=== PATIENT | male | born 1935 | race Caucasian/White ===

== ENCOUNTER 2019-03-09 13:44 | Observation (INO) | payer OTHER ==
[~2019-03-09] VITALS: Ht 170.2 cm; Wt 74.4 kg
--- NOTE | 2019-03-09 13:44 | NUR ---
JADEN NINO ALS TO ER BED 08
[2019-03-09 13:54] VITALS: BP 104/78
--- NOTE | 2019-03-09 13:55 | NUR ---
DR ARREDONDO EXAMINING PT.
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
[2019-03-09 15:04] LABS: BASOPHILS % (AUTO) 0.6 % (0.0-2.0); EOSINOPHILS % (AUTO) 0.7 % (0.0-4.0); HEMATOCRIT 48.2 % (36-52); LYMPHOCYTES # (AUTO) 1.9 K/uL (2.0-11.5); LYMPHOCYTES % (AUTO) 34.1 % (20.5-51.1); MEAN CORPUSCULAR HEMOGLOBIN 32 pg (27-31); MEAN CORPUSCULAR HGB CONC 33 g/dL (33-37); MEAN CORPUSCULAR VOLUME 94.7 fL (80-94); MONOCYTES # (AUTO) 0.4 K/uL (0.8-1.0); MONOCYTES % (AUTO) 7.4 % (1.7-9.3); NEUTROPHILS # (AUTO) 3.2 K/uL (1.8-7.7); NEUTROPHILS % (AUTO) 57.2 % (42.2-75.2); PLATELET COUNT (AUTO) 194 K/uL (140-450); RED BLOOD CELL COUNT(AUTO) 5.08 MIL/uL (4.20-6.10); RED CELL DISTRIBUTION WIDTH 14.8 % (11.6-13.7); WHITE BLOOD COUNT (AUTO) 5.7 K/uL (4.8-10.8)
--- NOTE | 2019-03-09 15:06 | NUR ---
ISAR SCORE AND HOMELESS ASSESSMENT UNOBTAINABLE
[2019-03-09 15:14] LABS: PROTHROMBIN TIME 9.5 secs (10.8-13.4)
--- NOTE | 2019-03-09 15:20 | NUR ---
PT AMBULATED TO RESTROOM WITH ASSISTANCE
[2019-03-09 15:35] LABS: APPEARANCE,URINE CLEAR (CLEAR); BILIRUBIN,URINE NEGATIVE (NEGATIVE); BLOOD, URINE NEGATIVE (NEGATIVE); COLOR,URINE YELLOW (YELLOW); LEUKOCYTE ESTERASE ,URINE NEGATIVE (NEGATIVE); NITRITE, URINE NEGATIVE (NEGATIVE); PH,URINE 5.5 (5.0-9.0); UGLUCOSE NEGATIVE (NEGATIVE)
[2019-03-09 15:39] LABS: BARBITURATE, URINE NEGATIVE ng/ml (NEG <=200); BENZODIAZEPINE, URINE NEGATIVE ng/mL (NEG <=200); CANNABINOID, URINE NEGATIVE ng/mL (NEG <=50); COCAINE, URINE NEGATIVE ng/mL (NEG <=300); OPIATE, URINE NEGATIVE ng/mL (NEG <=2000); PHENCYCLIDINE SCREEN,URINE NEGATIVE ng/mL (NEG <=25)
[2019-03-09 16:12] LABS: HYALINE CASTS, URINE 0-10 /LPF (None Seen); RBC,URINE 0 /HPF (0-5); WBC,URINE 0 /HPF (0-5)
[2019-03-09 16:35] LABS: ANION GAP 17.6 (8-16); CARBON DIOXIDE 23.1 mmol/L (21-32); CHLORIDE 104 mmol/L (98-107); GLUCOSE 99 mg/dL (74-106); POTASSIUM 4.7 mmol/L (3.5-5.1); SODIUM SERUM 140 mmol/L (136-145)
[2019-03-09 16:36] LABS: ALBUMIN 3.7 g/dL (3.4-5.0); ASPARTATE AMINOTRANSFERASE 18 U/L (15-37); TOTAL BILIRUBIN 0.5 mg/dL (0.0-1.0); UREA NITROGEN, BLOOD 29 mg/dL (7-18)
[2019-03-09 16:37] LABS: ACETAMINOPHEN < 0.5 ug/ml (10-30); SALICYLATE 4.8 mg/dL (2.8-20.0)
--- NOTE | 2019-03-09 17:02 | NUR ---
PT IS BECOMING IRRITABLE AND IS STATING HE WANTS TO LEAVE THE HOSPITAL. PT IS INSISTING WE LET HIM GO OUTSIDE TO SMOKE. I INFORMED PT HE CAN'T GO OUTSIDE TO SMOKE. DR. ARREDONDO MADE AWARE
[2019-03-09] MEDS ORDERED: LORazepam 2 MG/ML VIAL IM ONE (17:50)
[2019-03-09] MEDS ORDERED: OLANZapine 5 MG ODT PO ONE (17:50)
--- NOTE | 2019-03-09 18:40 | NUR ---
RECEIVED REPORT FROM EMERGENCY ROOM NURSE DARIAN FOR CONTINUITY OF CARE. PT IN STABLE CONDITION. RESPIRATIONS EVEN AND UNLABORED. SAFETY MEASURES IN PLACE. BED IN LOW POSITION. BED ALARM ON. CALL LIGHT AT BEDSIDE. WILL CONTINUE TO MONITOR.
--- NOTE | 2019-03-09 18:42 | NUR ---
Patient will be admitted to care of DR. DR. CANELA. Admited to TELEMETRY. Will go to room 106A. Belongings list completed. Report to KRYS RILEY.
[2019-03-09] MEDS: NACL 0.9% 1,000 ML IV SCH (18:44)
[2019-03-09] MEDS ORDERED: DOCUSATE SODIUM 100 MG GELCAP PO PRN (18:45)
[2019-03-09] MEDS ORDERED: HYDROcodone/APAP 5/325 MG 1 TAB TAB PO PRN (18:45)
[2019-03-09] MEDS ORDERED: ONDANSETRON 4 MG/2 ML VIAL IM/IVP PRN (18:45)
[2019-03-09] MEDS ORDERED: MORPHINE SULFATE 2 MG/ML SYR IVP PRN (18:45)
[2019-03-09] MEDS ORDERED: ACETAMINOPHEN 325 MG TAB PO PRN (18:45)
[2019-03-09] MEDS ORDERED: ZOLPIDEM 5 MG TAB PO PRN (18:45)
--- NOTE | 2019-03-09 18:45 | NUR ---
MRSA NARES TAKEN TO LAB AT THIS TIME.
--- NOTE | 2019-03-09 19:15 | NUR ---
GAVE REPORT TO TRAFFIC I MANAGER NURSE OSWALDO FOR CONTINUITY OF CARE. PT IN STABLE CONDITION.
--- NOTE | 2019-03-09 19:15 | NUR ---
REPORT RECEIVED BY ROSEMARY RN DAYSHIFT NURSE, MRSA SWAB DONE, V/S FOLLOWS T 97.6 P 80 R 18 B/P 166/89 02 95% ON ROOM AIR. PT IN LOW BED WITH SIDE RAILS UP X2 AND BED ALARM ON.
[2019-03-09 19:30] VITALS: BP 113/68
--- NOTE | 2019-03-09 19:45 | NUR ---
PT IN LOW BED WITH BED ALARM ON, HE IS AOX1 WITH 18G IV SITE ON LEFT F/A WHICH IS INTACT AND FLUSHED PATENT. PT WAS TURNED, CHANGED AND YELLOW FALLS GOWN PLACED ON PT FOR FALLS PROTOCOL. PT SKIN INTACT. BELONGINGS OF CLOTHES AND GLASSES AT BEDSIDE. PT APPEARS TO BE WEARING DENTURES WELL.
[2019-03-09 20:10] LABS: PHOSPHORUS 4.1 mg/dL (2.5-4.9); THYROID STIMULATING HORMONE 1.87 uIU/mL (0.34-3.74)
[2019-03-09] MEDS: LORazepam 2 MG/ML VIAL IM/IVP PRN (20:39)
--- NOTE | 2019-03-09 20:42 | NUR ---
PT TAKEN BY PHONG FOR CT AND PULMONARY VQ SCAN. PT WAS GIVEN 1MG IVP ATIVAN FOR AGITATION AND THE ORDERED 5,000 UNITS OF HEPARIN SQ BEFORE LEAVING THE FLOOR.
[2019-03-10] VITALS: BP 153/88
--- NOTE | 2019-03-10 | NUR ---
PT IN BED SLEEPING, HE WAS TURNED, CHANGED AND REPOSITIONED IN BED, NO S/S OF PAIN OR DISTRESS NOTED V/S FOLLOWS T 97.5 P 64 R 18 B/P 153/88 02 97% ON ROOM AIR. IV SITE INTACT AND RUNNING N/S AT 80MLS/HR. ALL FALLS PRECAUTIONS IN PLACE AND CALL RENE IN REACH.
[2019-03-10] MEDS ORDERED: traZODone 50 MG TAB PO PRN (02:00)
[2019-03-10] MEDS ORDERED: OLANZapine 5 MG ODT SL PRN (02:00)
[2019-03-10] MEDS ORDERED: MELATONIN 3 MG TAB PO PRN (02:00)
[2019-03-10 04:00] VITALS: BP 168/99
--- NOTE | 2019-03-10 04:45 | NUR ---
PT IN BED NO S/S OF PAIN OR DISTRESS NOTED. PT WAS TURNED, CHANGED AND REPOSITIONED IN BED. V/S FOLLOWS T 97.7 P 77 R 18 B/P 168/99 02 95% ON ROOM AIR. RESIDENT MD HYDE MADE AWARE OF B/P READING, HE SAID HE WOULD LOOK AT PT CHART FOR PRN. WILL MONITOR FO ADDITIONAL ORDERS.
--- NOTE | 2019-03-10 06:30 | NUR ---
MD HYDE SAID MOST LIKELY PT TO BE PUT ON BETA IZA, HE SAID HE WILL ENDORSE TO DAYSHIFT TO ORDER. PT SLEEPING IN BED NO S/S OF PAIN OR DISTRESS NOTED.
--- NOTE | 2019-03-10 07:20 | NUR ---
RECEIVED REPORT FROM FIELD MARKETING ASSOCIATE NURSE. PATIENT LYING DOWN IN BED SLEEPING, AROUSABLE BY VOICE. TRIES TO GET OUT OF BED THROUGHOUT NIGHT D/T CONFUSION PER NIGHT RN REPORTS. AAOX1, CALM, CONFUSED, SKIN COLOR APPROPRIATE TO ETHNICITY, WARM TO TOUCH. HAS RIGHT OUTER ELBOW SKIN TEAR, DRESSING DRY AND INTACT. IV SITE INTACT, PATENT, AND INFUSING IVF PER MD ORDERS. ABD SOFT, NON-DISTENDED. SAFETY MEASURES IN PLACE, CALL LIGHT WITHIN REACH. WILL CONTINUE TO MONITOR.
[2019-03-10 07:29] LABS: BASOPHILS % (AUTO) 0.8 % (0.0-2.0); EOSINOPHILS # (AUTO) 0.1 K/uL (0-0.4); EOSINOPHILS % (AUTO) 1.3 % (0.0-4.0); HEMATOCRIT 50.4 % (36-52); HEMOGLOBIN 16.7 g/dL (12.0-18.0); LYMPHOCYTES # (AUTO) 2.2 K/uL (2.0-11.5); LYMPHOCYTES % (AUTO) 36.9 % (20.5-51.1); MEAN CORPUSCULAR HEMOGLOBIN 32 pg (27-31); MEAN CORPUSCULAR HGB CONC 33 g/dL (33-37); MEAN CORPUSCULAR VOLUME 96.1 fL (80-94); MONOCYTES # (AUTO) 0.3 K/uL (0.8-1.0); MONOCYTES % (AUTO) 5.5 % (1.7-9.3); NEUTROPHILS # (AUTO) 3.3 K/uL (1.8-7.7); NEUTROPHILS % (AUTO) 55.5 % (42.2-75.2); PLATELET COUNT (AUTO) 194 K/uL (140-450); RED BLOOD CELL COUNT(AUTO) 5.25 MIL/uL (4.20-6.10); RED CELL DISTRIBUTION WIDTH 15.2 % (11.6-13.7); WHITE BLOOD COUNT (AUTO) 5.9 K/uL (4.8-10.8)
[2019-03-10 07:51] LABS: ANION GAP 13.8 (8-16); CARBON DIOXIDE 26.2 mmol/L (21-32); CHLORIDE 107 mmol/L (98-107); CREATININE 1.5 mg/dL (0.7-1.3); GLUCOSE 87 mg/dL (74-106); SODIUM SERUM 142 mmol/L (136-145); UREA NITROGEN, BLOOD 23 mg/dL (7-18)
[2019-03-10 08:00] VITALS: BP 145/108
--- NOTE | 2019-03-10 08:04 | NUR ---
PATIENT HAS BEEN SCREENED AND CATEGORIZED HIGH NUTRITION RISK. PATIENT WILL BE SEEN WITHIN 1-2 DAYS OF ADMISSION. 03/10/19-03/11/[address]
[2019-03-10 08:20] LABS: CHOL/HDL RATIO 4.5 (1-4.5)
[2019-03-10] MEDS: NACL 0.9% 1,000 ML IV SCH (08:32)
[2019-03-10] MEDS ORDERED: MORP2SOL18 IVP (09:00)
[2019-03-10] MEDS ORDERED: ONDA2SOL45 IM/IVP (09:00)
[2019-03-10] MEDS ORDERED: TRAZ-466 PO (09:00)
[2019-03-10] MEDS ORDERED: OLAN5ODT9 SL (09:00)
[2019-03-10] MEDS ORDERED: DOCU-299 PO (09:00)
[2019-03-10] MEDS ORDERED: HEPA500056 SUBQ (09:00)
[2019-03-10] MEDS ORDERED: ACET-9525 PO (09:00)
[2019-03-10] MEDS ORDERED: ATI2I IM/IVP (09:00)
[2019-03-10] MEDS ORDERED: MELA3TAB56 PO (09:00)
[2019-03-10] MEDS ORDERED: ACET-1182 PO (09:00)
--- NOTE | 2019-03-10 09:02 | NUR ---
Clinicals faxed to [facility] . Spoke with Marilyn MONAE and she will review the request for transfer. Per Dr. Ramos pt is stable to be transferred to [facility].
--- NOTE | 2019-03-10 09:30 | NUR ---
PATIENT SITTING IN WHEELCHAIR AT [facility] D/T TRYING TO GET OUT OF BED. NO DISTRESS NOTED. WILL CONTINUE TO MONITOR.
--- NOTE | 2019-03-10 09:30 | NUR ---
PATIENT CONFUSED/ALOC, UNABLE TO STATE , PERSON, PLACE OR YEAR. CONSTANT MUMBLING, INCOMPREHENSIBLE. ATTEMPTING TO GET OUT OF BED. SAFETY MEASURES IN PLACE. ARM BOARD PLACED DUE TO ATTEMPTING TO PULL IV. WILL CONTINUE TO MONITOR Addendum: 03/10/19 at 1452 by Elaina Houser RN TIME OF NOTE: 1000
[2019-03-10] MEDS: LORazepam 2 MG/ML VIAL IM/IVP PRN (10:44)
--- NOTE | 2019-03-10 10:48 | NUR ---
PATIENT AGITATED AND TRYING TO GET OUT OF BED. ATIVAN GIVEN AT THIS TIME. SCHEDULED MEDICATIONS DUE GIVEN. WILL CONTINUE TO MONITOR.
[2019-03-10 12:00] VITALS: BP 168/90
--- NOTE | 2019-03-10 12:13 | NUR ---
PATIENT IN BED, ATTEMPTING TO GET UP, PATIENT RIPPED IV TUBING. IV REMOVED AND BANDAGE APPLIED. SAFETY MEASURES IN PLACE. WILL CONTINUE TO MONITOR.
--- NOTE | 2019-03-10 13:13 | NUR ---
Spoke with Marilyn MONAE from [facility] . They are still reviewing the pt's clinicals. Marilyn will call me back later this afternoon.
[2019-03-10 14:00] VITALS: BP 171/92
--- NOTE | 2019-03-10 14:09 | NUR ---
Spoke with Marilyn MONAE from [facility] . Per Marilyn pt will be transferred to [facility]. Faxed clinicals to [facility] Transfer Unit.
--- NOTE | 2019-03-10 14:15 | NUR ---
PATIENT SLEEPING IN BED, NO DISTRESS NOTED. WILL CONTINUE TO MONITOR. PENDING TRANSFER TO [facility]. WILL FOLLOW UP.
--- NOTE | 2019-03-10 14:39 | NUR ---
Spoke with Janine MARCANO from [facility] Transfer Unit . The hospitalist will review the clinicals and she will call us once they have a bed for the pt.
--- NOTE | 2019-03-10 15:25 | NUR ---
Social Work Note: SW attempted to conduct assessment but patient was asleep. SW/CM will follow up.
--- NOTE | 2019-03-10 15:54 | NUR ---
Spoke with Agnes MONAE from [facility] , transportation AUTH 03/10/19 with [facility].
--- NOTE | 2019-03-10 15:59 | NUR ---
Transportation arranged with [facility]. Pt will be picked up at 1800 and transported to [facility] room 373 A. Nurses station # , [address] [place] [id number]. Informed Ashley LEIGH for time of supervisor opening and picking.
--- NOTE | 2019-03-10 16:39 | NUR ---
CALLED [facility] AND GAVE REPORT TO KRYS REYES. ANSWERED ALL OF ERIC'S QUESTIONS REGARDING TRANSFER. NOTIFIED RN OF TRANSFER TIME OF 1800 BY [facility]. RN VERBALIZED COMPLETE UNDERSTANDING AND AWAITING FOR PATIENT'S ARRIVAL. WILL CONTINUE TO MONITOR. DISCHARGE INSTRUCTIONS GIVEN TO PATIENT, UNABLE TO COMPREHEND AT THIS TIME. AAOX1, CONFUSED. WILL CONTINUE TO MONITOR.
--- NOTE | 2019-03-10 17:59 | NUR ---
PATIENT LYING DOWN IN BED SLEEPING, AROUSABLE BY VOICE. NO DISTRESS NOTED. DENIES ANY PAIN. SCHEDULED MEDICATIONS DUE GIVEN. WILL CONTINUE TO MONITOR.
--- NOTE | 2019-03-10 18:20 | NUR ---
[facility] TRANSPORT ON UNIT TO TAKE PATIENT TO [facility]. ID BANDS REMOVED. PATIENT HAS NO IV LINES PATIENT PULLED OUT A WHILE AGO. REPORT GIVEN TO [facility] TRANSPORT. PATIENT DISCHARGED AT THIS TIME IN STABLE CONDITION TO [facility].
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
--- NOTE | 2019-03-14 13:19 | NUR ---
Please disregard previous assessment.
== END 2019-03-10 18:20 | disposition short-term general hospital (02) ==
LOC: MED 13:44 → INTOOBSV 17:58 → UNDOADMOB 17:58 → MTU 17:58
PROVIDERS: ADMIT General Practice; ATTEND General Practice
DX: R41.0 Disorientation, unspecified (principal); G30.9 Alzheimer's disease, unspecified; F02.81 Dementia in other diseases classified elsewhere, unspecified severity, with behavioral disturbance; G62.9 Polyneuropathy, unspecified; R80.9 Proteinuria, unspecified; R79.1 Abnormal coagulation profile; N19 Unspecified kidney failure
CPT/HCPCS: 36415; 70450; 71045; 71250; 78582; 80048; 80053; 80061; 80305; 81001; 82140; 82550; 83036; 83690; 83735; 83880; 84100; 84134; 84443; 84484; 85025; 85379; 85610; 85730; 87040; 87081; 93005; 96361; 96372; 96374; 96376; 97116; 97161; 97530; 99285; G0378; G0480; G0482; J1644; J2060; J7030; Q0092